=== PATIENT | female | born 1980 | race Caucasian/White ===

== ENCOUNTER 2017-07-26 08:02 | Day surgery (SDC) | payer OTHER ==
[2017-07-26] MEDS ORDERED: Mineral Oil PER 1 ML PO SCH (08:30)
[2017-07-26] MEDS ORDERED: Terbutaline Sulfate 1 MG/ML VIAL SC SCH (08:45)
--- NOTE | 2017-07-26 08:50 | PDOC.LDHP ---
Labor and Delivery H&P Chief complaint: other (Scheduled procedure: ECV for persistent breech presentation.) HPI: Patient is doing well. No concerns. Good movement this morning. Patient feels like is still head up Current gestational age (weeks): 37 Due date: 08/13/17 Dating criteria: first trimester ultrasound (dated by US for S<D at 9 weeks gestation) Grav: 2 Para: 1 ( 7lbs 11oz ) OB History Details: G1 2006 - 7.11 Current complications: other (hypothyroidism on Whitt thyroid, Persistent Breech presentation, AMA (neg maternity 21)) Past Medical History: Hypothyroidism Current medications: pre- vitamins, other (armour thyroid) Previous surgical history: cholecystectomy Allergies/Adverse Reactions: Allergies Allergy/AdvReac Type Severity Reaction Status Date / Time No Allergy Information Allergy Verified 07/26/17 08:42 Available Social history: alcohol use (rarely pre ) - Physical Exam Vital signs reviewed and normal: yes General: NAD Heart: RRR Lungs: CTAB Abdomen: gravid (Breech by leopolds and confirmed by bedside US) Extremeties: trace edema FHT: category 1 - OB Labs Blood type: A RH: positive Antibody Screen: negative HIV: negative RPR: negative HEPSAg: negative 1 hour GCT: negative - Assessment term patient for ECV - Plan -: ECV
[2017-07-26 08:56] VITALS: BMI 35.9
--- NOTE | 2017-07-26 10:31 | OP ---
DATE OF PROCEDURE: 07/26/2017 PREOPERATIVE DIAGNOSES: Persistent jacquelyn breech presentation at 37-38 weeks' gestation, blood type A positive, posterior placenta, adequate amniotic fluid volume. POSTOPERATIVE DIAGNOSES: Persistent jacquelyn breech presentation at 37-38 weeks' gestation, blood type A positive, posterior placenta, adequate amniotic fluid volume plus conversion to cephalic presentati on. PROCEDURE: External cephalic version. SURGEON: Zev Tobin M.D. ANESTHESIA: None. ESTIMATED BLOOD LOSS: None. COMPLICATIONS: None. OPERATIVE FINDINGS: 1. Persistent jacquelyn breech presentation with back on the maternal right with posterior fundal placenta, adequate amniotic fluid index. 2. A forward roll conversion to cephalic presentation with approximately 2-3 minutes of effort with external cephalic version. 3. Category 1 heart rate tracing prior to and post-procedure. DISPOSITION: Home. Follow up with Karolyn Preciado, certified nurse microsoft access developer, at [facility] in 1 week. DESCRIPTION OF OPERATIVE PROCEDURE: The patient was admitted and was noted to have Rh positive blood . She received an IV and gave consents for delivery and for external cephalic version, received terb utaline 0.25 subcutaneous approximately 50 minutes prior to the initiation of the procedure. Ultraso und was used to confirm presentation and location of placenta, PAOLO, lie. Minimal oil was appli ed to the abdomen and the central station operator using his hands, elevated the breech out to the pelvis, in a clockwise manner used his hands to roll the head into the maternal left lower quadrant and con versely at the same time pushed the breech through the right lower quadrant into the right uppe r quadrant. This was accomplished over approximately 3 minutes. Ultrasound guidance revealed no luis alberto dence of deceleration. Cephalic presentation was confirmed after external cephalic version. The pat ient will be monitored for approximately 1 hour. Sent home with precautions for decreased move ment and follow up in 1 week at [facility].
== END 2017-07-26 10:49 | disposition home or self-care (01) ==
LOC: L&D/OP 08:02
PROVIDERS: ATTEND Obstetrics & Gynecology
PROC: 10S0XZZ Reposition Products of Conception, External Approach (ICD-10-PCS; principal; 2017-07-26)
DX: O32.1XX0 Maternal care for breech presentation, not applicable or unspecified (principal); O99.283 Endocrine, nutritional and metabolic diseases complicating pregnancy, third trimester; E03.9 Hypothyroidism, unspecified; Z3A.37 37 weeks gestation of pregnancy; Z79.899 Other long term (current) drug therapy
CPT/HCPCS: 59412; 76815; 96372; 99283; J3105

== ENCOUNTER 2017-08-10 05:30 | Inpatient (IN) | payer OTHER ==
[2017-08-10] MEDS ORDERED: HYDROcodone/Acetaminophen 5/325 mg Tablet PO PRN ×3 (07:07→18:40)
[2017-08-10] MEDS ORDERED: Promethazine HCl 25 MG/ML VIAL IM PRN ×2 (07:07→14:08)
[2017-08-10] MEDS ORDERED: Ondansetron HCl/PF 4 MG/2 ML Vial IVP PRN ×2 (07:07→14:08)
[2017-08-10] MEDS ORDERED: Methylergonovine 0.2 MG/ML VIAL IM PRN ×2 (07:07→18:40)
[2017-08-10] MEDS ORDERED: LR / Pitocin 40 units/1000 ml 1,000 ML IV PRN (07:07)
[2017-08-10] MEDS ORDERED: Misoprostol 200 MCG TAB PR PRN (07:07)
[2017-08-10] MEDS ORDERED: LR 500 ML/Oxytocin 10 units 500 ML IV SCH (07:07)
[2017-08-10] MEDS ORDERED: Ibuprofen 800 MG TAB PO PRN (07:07)
[2017-08-10] MEDS ORDERED: Lidocaine 1% (PF) 30 ML VIAL SC PRN (07:07)
[2017-08-10] MEDS: Lactated Ringer's 1,000 ML IV SCH ×2 (07:40→12:02)
[2017-08-10 08:09] VITALS: BMI 35.3
[2017-08-10 08:11] LABS: Hemoglobin 11.5 g/dL (12.0-16.0); Mean Corpuscular HGB CONC 35.7 g/dL (32.0-36.0); Mean Corpuscular Hemoglobin 34.7 pg (27.0-31.0); Mean Platelet Volume 8.1 fL (7.4-10.4); Platelet Count 156 thou/uL (130-400); RBC Distribution Width 13.2 % (11.5-14.5); Red Blood Cell (RBC) Count 3.32 mill/uL (4.20-5.40); White Blood Cell (WBC) Count 8.2 thou/uL (4.8-10.8)
[2017-08-10 08:54] LABS: Syphilis Antibody Nonreactive (Nonreactive); Syphilis Antibody Index 0.03 S/CO (<1.00 Non-Reactive)
[2017-08-10] MEDS ORDERED: Lidocaine 2% MPF 10 ML AMP (For Epidural Use) ONE (09:00)
[2017-08-10] MEDS ORDERED: DISCONTINUE ALL PREVIOUS NARCOTICS FS SCH (09:45)
[2017-08-10] MEDS ORDERED: Bupivacaine 0.5% 20 ML, fentaNYL Citrate/PF 400 MCG in Sodium Chloride 0.9% 72 ML EPIDURAL SCH (09:45)
[2017-08-10] MEDS ORDERED: Eucerin (Mineral Oil/Petrolatum,White) 30 gm Jar TOP PRN (14:08)
[2017-08-10] MEDS ORDERED: ePHEDrine/0.9% NaCl/PF SYRINGE 50 mg/10 ml SLOW IVP PRN (14:08)
[2017-08-10] MEDS ORDERED: Lactated Ringer's 500 ML IV PRN (14:08)
[2017-08-10] MEDS ORDERED: diphenhydrAMINE 50 MG/ML VIAL IVP PRN (14:08)
[2017-08-10] MEDS ORDERED: Naloxone HCl 0.4 mg/ml Vial IVP PRN ×2 (14:08)
[2017-08-10] MEDS ORDERED: Acetaminophen 325 MG TAB PO PRN (14:08)
[2017-08-10] MEDS ORDERED: Fentanyl 4mcg/Marcaine 0.1% Cassette 100 ML EPIDURAL SCH (14:15)
[2017-08-10] MEDS ORDERED: Communication Order-Pharmacy FS SCH (14:15)
[2017-08-10 15:12] LABS: HBSAg Index 0.19 S/CO (0-0.99); Hep B Surf Ag Non-Reactive S/CO (NonReactive)
--- NOTE | 2017-08-10 18:23 | PDOC.OPDEL ---
OB Operative/Delivery Note Delivery Dr/Surgeon: Sarath Preciado CNM Pre-Delivery Diagnosis: other (IOL - elective. Light mec.) Procedure/Post Delivery Dx: spontaneous vaginal delivery Weeks gestation: 39 Anesthesia: epidural - Findings A Sex: male Weight: 7 lb 13 oz - 1 min: 8 - 5 min: 9 - Additional Findings/Plan Placenta delivered: spontaneous Repaired Obstetrical Laceration: none Estimated blood loss: 200mL Post delivery plan: routine recovery
[2017-08-10] MEDS ORDERED: Zolpidem Tartrate 5 MG TAB PO PRN (18:40)
[2017-08-10] MEDS ORDERED: Lanolin Ointment 7 GM TUBE TOP PRN (18:40)
[2017-08-10] MEDS ORDERED: Benzocaine/Menthol 20-0.5% 60 ML CAN TOP PRN (18:40)
[2017-08-10] MEDS ORDERED: LR / Pitocin 40 units/1000 ml 1,000 ML IV SCH (18:40)
[2017-08-10] MEDS ORDERED: Milk Of Magnesia 30 ML UDCUP PO PRN (18:40)
[2017-08-10] MEDS ORDERED: Bisacodyl 10 MG SUPP PR PRN (18:40)
[2017-08-10] MEDS ORDERED: Misoprostol 200 MCG TAB VAG SCH (19:00)
[2017-08-10] MEDS: Docusate Calcium (SURFAK) 240 MG CAP PO SCH (20:51)
[2017-08-10] MEDS: HYDROcodone/Acetaminophen 5/325 mg Tablet PO PRN (21:24)
[2017-08-10] MEDS: Ibuprofen 800 MG TAB PO SCH (22:16)
[2017-08-11 06:17] LABS: Hemoglobin 10.9 g/dL (12.0-16.0); Mean Corpuscular HGB CONC 34.3 g/dL (32.0-36.0); Mean Corpuscular Hemoglobin 33.7 pg (27.0-31.0); Mean Corpuscular Volume 98.3 fl (81.0-99.0); Mean Platelet Volume 8.1 fL (7.4-10.4); Platelet Count 144 thou/uL (130-400); RBC Distribution Width 13.2 % (11.5-14.5); Red Blood Cell (RBC) Count 3.24 mill/uL (4.20-5.40); White Blood Cell (WBC) Count 11.8 thou/uL (4.8-10.8)
[2017-08-11] MEDS: Ibuprofen 800 MG TAB PO SCH ×3 (06:26→21:32)
[2017-08-11] MEDS: Prenatal Vitamin 1 TAB PO SCH (08:26)
[2017-08-11] MEDS: Docusate Calcium (SURFAK) 240 MG CAP PO SCH ×2 (08:26→21:32)
[2017-08-11] MEDS: Ferrous Sulfate 325 MG TAB PO SCH ×2 (08:26→18:51)
[2017-08-11] MEDS ORDERED: Measles/Mumps/Rubella 10 MCG/0.5 ML VIAL SC ONE (09:00)
[2017-08-11] MEDS ORDERED: Varicella virus, LIVE 0.5 ML VIAL SC ONE (09:00)
[2017-08-11] MEDS ORDERED: Adacel (T-DAP) 0.5 ML VIAL IM ONE (09:00)
[2017-08-11] MEDS: HYDROcodone/Acetaminophen 5/325 mg Tablet PO PRN (21:33)
[2017-08-12] MEDS: Ibuprofen 800 MG TAB PO SCH (05:39)
--- NOTE | 2017-08-12 08:19 | PDOC.PP ---
Post Progress Note Post Day #: 1 Subjective: pt is doing well. infant is a lot PO intake tolerated: yes Flatus: yes Ambulation: yes Vital Signs (12 hours) Temp Pulse Resp BP 08/11/17 21:30 98.7 F 71 18 121/62 Weight Weight 219 lb - Physical Examination General: NAD Cardiovascular: no m/r/g Respiratory: non-labored breathing Abdominal: lochia (minimal) Extremities: negative homans (B) Skin: no rash Psychiatric: A&Ox3, normal affect Result Diagrams: 08/11/17 05:44 Additional Labs: Post Labs Blood Type A POSITIVE 08/10/17 07:53 Hep Bs Antigen Non-Reactive S/CO (NonReactive) 08/10/17 07:53 (1) (spontaneous vaginal delivery) Code(s): O80 - ENCOUNTER FOR FULL-TERM UNCOMPLICATED DELIVERY Status: Acute (2) AMA (advanced maternal age) multigravida 35+ Code(s): O09.529 - SUPERVISION OF ELDERLY MULTIGRAVIDA, UNSPECIFIED TRIMESTER Status: Acute - Assessment/Plan A: G2 now P2 s/p with NML PPD#1 exam P: plan for discharge tomorrow
--- NOTE | 2017-08-12 08:21 | PDOC.PP ---
Post Progress Note Post Day #: 2 Subjective: pt was up all night feeding PO intake tolerated: yes Flatus: yes Ambulation: yes Vital Signs (12 hours) Temp Pulse Resp BP 08/11/17 21:30 98.7 F 71 18 121/62 Weight Weight 219 lb - Physical Examination Cardiovascular: no m/r/g, RRR Respiratory: non-labored breathing Abdominal: lochia (minimal) Skin: no rash Psychiatric: normal affect Result Diagrams: 08/11/17 05:44 Additional Labs: Post Labs Blood Type A POSITIVE 08/10/17 07:53 Hep Bs Antigen Non-Reactive S/CO (NonReactive) 08/10/17 07:53 (1) (spontaneous vaginal delivery) Code(s): O80 - ENCOUNTER FOR FULL-TERM UNCOMPLICATED DELIVERY Status: Acute (2) AMA (advanced maternal age) multigravida 35+ Code(s): O09.529 - SUPERVISION OF ELDERLY MULTIGRAVIDA, UNSPECIFIED TRIMESTER Status: Acute - Assessment/Plan a; G2 now P2 sp with NL PPD#2 exam P: discharge home today when is discharged. follow up with kimberlee Preciado at 6 weeks or sooner if help is desired
[2017-08-12 08:27] VITALS: BP 106/66; TEMP 98.4
[2017-08-12] MEDS: Docusate Calcium (SURFAK) 240 MG CAP PO SCH (08:36)
[2017-08-12] MEDS: Ferrous Sulfate 325 MG TAB PO SCH (08:36)
[2017-08-12] MEDS: Prenatal Vitamin 1 TAB PO SCH (08:36)
[2017-08-12] MEDS: Lactated Ringer's 1,000 ML IV SCH (10:48)
== END 2017-08-12 13:30 | disposition home or self-care (01) | DRG 775 ==
LOC: L&D 06:53 → 3SW 21:03
PROVIDERS: ADMIT Obstetrics & Gynecology; ATTEND Obstetrics & Gynecology
PROC: 10E0XZZ Delivery of Products of Conception, External Approach (ICD-10-PCS; principal; 2017-08-10)
PROC: 3E0234Z Introduction of Serum, Toxoid and Vaccine into Muscle, Percutaneous Approach (ICD-10-PCS; 2017-08-12)
DX: O77.0 Labor and delivery complicated by meconium in amniotic fluid (principal); Z3A.39 39 weeks gestation of pregnancy; Z37.0 Single live birth; Z23 Encounter for immunization
CPT/HCPCS: 36415; 51702; 76815; 85027; 86780; 86850; 86900; 86901; 87340; 90715; J2001; J3010; J3490; J7050; J7120

== ENCOUNTER 2018-07-29 17:11 | Emergency (ER) | payer OTHER, SELFPAY ==
[2018-07-29 17:58] LABS: #Basophils 0.1 thou/uL (0.0-0.2); #Eosinphils 0.6 thou/uL (0.0-0.7); #Lymphocytes 2.5 thou/uL (1.20-3.40); #Monocytes 0.4 thou/uL (0.11-0.59); #Neutrophils 4.1 thou/uL (1.40-6.50); %Basophils 1.2 % (0.0-1.0); %Eosinophils 7.9 % (0.0-10.0); %Lymphocytes 32.6 % (21.0-51.0); %Monocytes 4.7 % (0.0-10.0); %Neutrophils 53.7 % (42.0-75.0); Hemoglobin 13.2 g/dL (12.0-16.0); Mean Corpuscular Hemoglobin 32.4 pg (27.0-31.0); Mean Corpuscular Volume 95.4 fL (78.0-98.0); Mean Platelet Volume 7.6 fL (7.4-10.4); Platelet Count 190 thou/uL (130-400); RBC Distribution Width 12.2 % (11.5-14.5); Red Blood Cell (RBC) Count 4.07 mill/uL (4.20-5.40); White Blood Cell (WBC) Count 7.7 thou/uL (4.8-10.8)
[2018-07-29 18:18] LABS: ALT (SGPT) 9 U/L (8-55); AST (SGOT) 14 U/L (5-34); Albumin 4.4 g/dL (3.5-5.0); Alkaline Phosphatase 88 U/L (40-150); Anion Gap 11 mmol/L (10-20); BUN (Urea Nitrogen) 16 mg/dL (7.0-18.7); Bilirubin, Total 0.6 mg/dL (0.2-1.2); Calc. Creatinine Clearance 0 mL/min (70-130); Calcium 9.4 mg/dL (7.8-10.44); Carbon Dioxide 26 mmol/L (22-29); Chloride 107 mmol/L (98-107); Estimated GFR-MDRD 85; Globulin 3.2 g/dL (2.4-3.5); Glucose 88 mg/dL (70-105); Lipase 22 U/L (8-78); Potassium 3.7 mmol/L (3.5-5.1); Protein, Total 7.6 g/dL (6.0-8.3); Sodium 140 mmol/L (136-145)
[2018-07-29] MEDS ORDERED: Lidocaine Viscous Sol 2% 15 ml UD Cup ONE (18:19)
[2018-07-29] MEDS ORDERED: Mag-Al 1200 mg/1200 mg/30 ML UDCUP ONE (18:19)
[2018-07-29 19:10] LABS: Bilirubin Negative (Negative); Blood, Urine Negative (Negative); Clarity CLEAR (Clear); Glucose, Urine (Dipstick) Negative (Negative); Leukocyte Small (Negative); Nitrite Negative (Negative); Protein, Urine (Dipstick) Negative (Neg-Trace); Specific Gravity, Urine 1.028 (1.002-1.036); pH, Urine 5.5 (5.0-9.0)
[2018-07-29 19:11] LABS: Bacteria/HPF Rare-Few HPF (None Seen); Hyaline Casts/LPF 0-3 HYALINE CAST LPF (0-3 Hyaline); Pathc Cast-AUWi Flag 0.27 (0-2.49); RBC/HPF 0-3 HPF (0-3)
[2018-07-29 19:31] LABS: Pregnancy Test - Urine (BHCG) Negative (Negative); Pregu Control Background? CLEAR/WHITE (CLR/WHITE); Pregu Control Bar Appear? YES (CONTROL BAR); Specific Gravity 1.028 (1.002-1.036)
== END 2018-07-29 19:46 | disposition home or self-care (01) ==
LOC: ERS 17:11
DX: R10.11 Right upper quadrant pain (principal); R10.13 Epigastric pain
CPT/HCPCS: 80053; 81003; 81015; 81025; 83690; 85025; 93005; 94760

== ENCOUNTER 2022-12-02 22:37 | Inpatient (IN) | payer BC, SELFPAY ==
[~2022-12-02 22:37] MED LIST: Iopamidol 370 76% 100 ML VIAL ONE; Iopamidol-370 76% 500 ML MDV (1 ML CHARGE) ONE
[2022-12-02 23:09] LABS: #Monocytes 0.1 thou/uL (0.11-0.59); #Neutrophils 3.6 thou/uL (1.40-6.50); %Basophils 0.5 % (0.0-1.0); %Lymphocytes 43.8 % (21.0-51.0); %Monocytes 2.1 % (0.0-10.0); %Neutrophils 53.4 % (42.0-75.0); Hematocrit 35.9 % (36.0-47.0); Hemoglobin 11.9 g/dL (12.0-16.0); Mean Corpuscular HGB CONC 33.1 g/dL (32.0-36.0); Mean Corpuscular Hemoglobin 32.2 pg (27.0-31.0); Mean Platelet Volume 9.5 fL (7.4-10.4); Platelet Count 156 10x3/uL (130-400); RBC Distribution Width 12.6 % (11.5-14.5); White Blood Cell (WBC) Count 6.7 10x3/uL (4.8-10.8)
[2022-12-02 23:17] LABS: BHCG - Serum Negative (NEGATIVE); Pregs Control Background? CLEAR/WHITE (CLR/WHITE); Pregs Control Bar Appear? YES (CONTROL BAR)
[2022-12-02 23:22] LABS: INR-International Normal Ratio 1.2; PTT 26.9 sec (22.9-36.1); Prothrombin Time 15.5 sec (12.0-14.7)
[2022-12-02] MEDS ORDERED: fentaNYL PF 100 MCG/2 ML SYRINGE ONE (23:25)
[2022-12-02] MEDS ORDERED: Tenecteplase 50 MG ONE (23:30)
[2022-12-02] MEDS ORDERED: Rocuronium Bromide 10 MG/ML (10ML VIAL) ONE (23:30)
[2022-12-02 23:33] LABS: ALT (SGPT) 12 U/L (8-55); AST (SGOT) 15 U/L (5-34); Acetaminophen Less than 10 mcg/mL (10.0-30.0); Albumin 3.8 g/dL (3.5-5.0); Alcohol Less than 10.0 mg/dL (Less than 10); Alkaline Phosphatase 65 U/L (40-110); Anion Gap 6 mmol/L (10-20); BUN (Urea Nitrogen) 17 mg/dL (7.0-18.7); Bilirubin, Total 0.6 mg/dL (0.2-1.2); Calc. Creatinine Clearance 0 mL/min (70-130); Calcium 8.7 mg/dL (7.8-10.44); Carbon Dioxide 18 mmol/L (22-29); Chloride 108 mmol/L (98-107); Estimated GFR 103; Globulin 2.9 g/dL (2.4-3.5); Glucose 163 mg/dL (70-105); Potassium 3.1 mmol/L (3.5-5.1); Protein, Total 6.7 g/dL (6.0-8.3); Salicylate Less than 8.0 mg/dL (15.0-30.0); Sodium 129 mmol/L (136-145)
[2022-12-03] LABS: Actual Bicarbonate (HCO3a) 18.7 mEq/L (22-28); Analyzer IN Cardio ER; Base Excess (BEa) -2.7 mEq/L (-2.0 to +3.0); Calcium, Ionized (arterial) 1.11 mmol/L (1.12-1.30); Carboxyhemoglobin (COHb) 0.3 gm% (0.0-3.0); Hematocrit-ABG 37 % (36.0-47.0); Hemoglobin (Hb) 12.5 g/dL (12.0-16.0); O2 Tension (PaO2), arterial 256.8 mmHg (80.0-100.0); Potassium - ABG Lab 3.34 mmol/L (3.70-5.30)
[2022-12-03 00:11] LABS: Puncture Site LRA
[2022-12-03] MEDS ORDERED: Midazolam HCl 2 mg/2 ml Vial ONE (00:14)
[2022-12-03] MEDS ORDERED: Ipratropium/Albuterol 3 ML NEB NEB PRN (00:24)
[2022-12-03] MEDS ORDERED: Electrolyte Replacement Protocol 1 EACH IVPB SCH (00:24)
[2022-12-03] MEDS ORDERED: Lidocaine 1% (PF) 30 ML VIAL ONE ×2 (00:26→01:06)
[2022-12-03] MEDS ORDERED: Heparin 10,000 UNITS/ 10 ML VIAL ONE (00:26)
[2022-12-03] MEDS ORDERED: niCARdipine 25 MG in Sodium Chloride 0.9% 250 ML 250 ML IVPB PRN (00:28)
[2022-12-03] MEDS ORDERED: Labetalol HCl 100 MG/20 ML VIAL SLOW IVP PRN (00:28)
[2022-12-03] MEDS ORDERED: hydrALAZINE 20 MG/ML VIAL SLOW IVP PRN (00:28)
[2022-12-03] MEDS ORDERED: Communication Order-Pharmacy FS SCH (00:28)
[2022-12-03] MEDS ORDERED: Morphine 2 MG/ML VIAL SLOW IVP PRN (00:30)
[2022-12-03] MEDS ORDERED: Fentanyl CADD 100 ML IV SCH (00:30)
[2022-12-03] MEDS ORDERED: Lorazepam 2 MG/ML VIAL SLOW IVP PRN (00:30)
[2022-12-03] MEDS ORDERED: Fentanyl BOLUS 250 ML IVPB PRN (00:30)
[2022-12-03] MEDS ORDERED: Ventilator Sedation Protocol 1 EACH FS SCH (00:30)
[2022-12-03] MEDS ORDERED: Propofol 1,000 MG/100 ML VIAL IV PRN (00:30)
[2022-12-03] MEDS ORDERED: Propofol BOLUS 1,000 MG/100 ML VIAL IV PRN (00:30)
[2022-12-03 00:57] LABS: Amphetamine Detected (NotDetected); Barbiturates Screen Not Detected (NotDetected); Benzodiazepine Screen Detected (NotDetected); Cocaine Metabolite Screen Not Detected (NotDetected); Methadone Not Detected (NotDetected); Methamphetamine Not Detected (NotDetected); Opiate Screen Detected (NotDetected); Oxycodone Screen Not Detected (NotDetected); Phencyclidine (PCP) Not Detected (NotDetected); THC/Cannabinoid Screen Not Detected (NotDetected); Tricyclic Screen Not Detected (NotDetected)
[2022-12-03] MEDS ORDERED: Rocuronium Bromide 10 MG/ML (10ML VIAL) ONE (00:59)
[2022-12-03 03:20] VITALS: BMI 27.2
[2022-12-03] MEDS: Lactated Ringer's 1,000 ML IV SCH ×2 (03:49→18:18)
[2022-12-03] MEDS: Potassium Chloride 20 MEQ in Premix Bag 1 BAG IVPB SCH ×2 (03:52→06:21)
[2022-12-03] MEDS: Famotidine/PF 20 mg/2ml Vial SLOW IVP SCH ×2 (09:32→20:15)
[2022-12-03] MEDS ORDERED: Artificial Tear Sol 15 ML BOT EA EYE PRN (15:40)
[2022-12-03] MEDS ORDERED: Senokot S 8.6-50 MG TAB PO PRN (15:40)
[2022-12-03] MEDS ORDERED: Calcium Carbonate 500 MG ChewTAB PO PRN (15:40)
[2022-12-03] MEDS ORDERED: Benzocaine/Menthol 1 LOZ LOZ PO PRN (15:40)
[2022-12-03] MEDS ORDERED: diphenhydrAMINE 25 MG CAP PO PRN (15:40)
[2022-12-03] MEDS ORDERED: Moisturizing Cream (Eucerin) 113 GM JAR TOP PRN (15:40)
[2022-12-03] MEDS ORDERED: Doxepin HCl 10 MG CAP PO PRN (15:40)
[2022-12-03] MEDS ORDERED: ALPRAZolam 0.5 MG TAB PO PRN (15:40)
[2022-12-03] MEDS: Atorvastatin Calcium 40 MG TAB PO SCH (20:15)
[2022-12-03] MEDS: Acetaminophen 500 MG TAB PO PRN (23:37)
[2022-12-04] MEDS: Lactated Ringer's 1,000 ML IV SCH ×2 (04:10→15:48)
[2022-12-04 04:45] LABS: #Basophils 0.1 thou/uL (0.0-0.2); #Eosinphils 0.1 thou/uL (0.0-0.7); #Monocytes 0.3 thou/uL (0.11-0.59); #Neutrophils 4.6 thou/uL (1.40-6.50); %Basophils 0.7 % (0.0-1.0); %Lymphocytes 27.6 % (21.0-51.0); %Monocytes 4.4 % (0.0-10.0); %Neutrophils 65.2 % (42.0-75.0); Hematocrit 35.1 % (36.0-47.0); Hemoglobin 11.6 g/dL (12.0-16.0); Mean Corpuscular Hemoglobin 31.8 pg (27.0-31.0); Mean Corpuscular Volume 96.2 fl (78.0-98.0); Mean Platelet Volume 9.6 fL (7.4-10.4); Platelet Count 167 10x3/uL (130-400); RBC Distribution Width 12.9 % (11.5-14.5); Red Blood Cell (RBC) Count 3.65 mill/uL (4.20-5.40); White Blood Cell (WBC) Count 7.1 10x3/uL (4.8-10.8)
[2022-12-04 04:56] LABS: Hemoglobin A1c 4.5 % (4.0-6.0)
[2022-12-04 05:11] LABS: INR-International Normal Ratio 1.1; PTT 31.1 sec (22.9-36.1)
[2022-12-04 05:14] LABS: ALT (SGPT) 14 U/L (8-55); AST (SGOT) 19 U/L (5-34); Albumin 3.5 g/dL (3.5-5.0); Alkaline Phosphatase 69 U/L (40-110); Anion Gap 9 mmol/L (10-20); BUN (Urea Nitrogen) 7 mg/dL (7.0-18.7); Bilirubin, Total 1.2 mg/dL (0.2-1.2); Calc. Creatinine Clearance 141 mL/min (70-130); Calcium 8.8 mg/dL (7.8-10.44); Carbon Dioxide 25 mmol/L (22-29); Cardiac Risk 2.5 (Less than 4.5); Chloride 107 mmol/L (98-107); Cholesterol 107 mg/dl (< 200 Desired); Estimated GFR 113; Globulin 2.9 g/dL (2.4-3.5); Glucose 85 mg/dL (70-105); HDL Cholesterol 42 mg/dL (>60 Neg Risk); LDL Cholesterol, Calculated 52 mg/dL; Potassium 3.4 mmol/L (3.5-5.1); Protein, Total 6.4 g/dL (6.0-8.3); Sodium 138 mmol/L (136-145); Triglycerides 67 mg/dL (Less than 150)
[2022-12-04 05:19] LABS: D-Dimer Test 3.49 *mcg/mL (0.27-0.43)
[2022-12-04] MEDS ORDERED: Potassium Chloride 20 MEQ TAB PO SCH (08:00)
[2022-12-04] MEDS: Aspirin 81 mg Enteric Coated Tablet PO SCH (08:20)
[2022-12-04] MEDS: Famotidine/PF 20 mg/2ml Vial SLOW IVP SCH ×2 (08:20→21:15)
[2022-12-04] MEDS: Acetaminophen 500 MG TAB PO PRN ×3 (10:25→23:24)
[2022-12-04 12:01] LABS: Prothrombin Time 14.7 sec (12.0-14.7)
[2022-12-04] MEDS ORDERED: Magnevist 469MG/ML 20 ML VIAL ONE (14:03)
[2022-12-04] MEDS: Atorvastatin Calcium 40 MG TAB PO SCH (21:16)
[2022-12-05] MEDS: Lactated Ringer's 1,000 ML IV SCH ×2 (01:39→13:00)
[2022-12-05 03:57] LABS: #Basophils 0.1 thou/uL (0.0-0.2); #Eosinphils 0.2 thou/uL (0.0-0.7); #Monocytes 0.4 thou/uL (0.11-0.59); #Neutrophils 3.8 thou/uL (1.40-6.50); %Basophils 0.7 % (0.0-1.0); %Eosinophils 3.4 % (0.0-10.0); %Lymphocytes 34.8 % (21.0-51.0); %Monocytes 5.2 % (0.0-10.0); %Neutrophils 55.9 % (42.0-75.0); Hematocrit 30.8 % (36.0-47.0); Hemoglobin 10.4 g/dL (12.0-16.0); Mean Corpuscular HGB CONC 33.8 g/dL (32.0-36.0); Mean Corpuscular Hemoglobin 32.2 pg (27.0-31.0); Mean Corpuscular Volume 95.4 fl (78.0-98.0); Mean Platelet Volume 9.6 fL (7.4-10.4); Platelet Count 148 10x3/uL (130-400); RBC Distribution Width 12.8 % (11.5-14.5); Red Blood Cell (RBC) Count 3.23 mill/uL (4.20-5.40); White Blood Cell (WBC) Count 6.8 10x3/uL (4.8-10.8)
[2022-12-05 04:24] LABS: Anion Gap 9 mmol/L (10-20); BUN (Urea Nitrogen) 8 mg/dL (7.0-18.7); Calc. Creatinine Clearance 141 mL/min (70-130); Calcium 8.6 mg/dL (7.8-10.44); Carbon Dioxide 24 mmol/L (22-29); Chloride 109 mmol/L (98-107); Estimated GFR 114; Glucose 87 mg/dL (70-105); Magnesium 1.4 mg/dL (1.6-2.6); Potassium 3.9 mmol/L (3.5-5.1); Sodium 138 mmol/L (136-145)
[2022-12-05] MEDS ORDERED: Ketorolac Tromethamine 30 MG/ML VIAL IVP SCH (06:00)
[2022-12-05] MEDS ORDERED: Magnesium Sulfate In Water 4 GM in Premix Bag 1 BAG IVPB SCH (06:00)
[2022-12-05] MEDS: Aspirin 81 mg Enteric Coated Tablet PO SCH (08:52)
[2022-12-05] MEDS: Famotidine/PF 20 mg/2ml Vial SLOW IVP SCH ×2 (08:52→20:49)
[2022-12-05] MEDS: Acetaminophen 500 MG TAB PO PRN (13:01)
[2022-12-05 19:22] LABS: Cardiolipin IgG Ab 5.4 GPL-U/mL (<10 Negative); Cardiolipin IgM Ab 3.6 MPL-U/mL (<10 Negative); EliA APS New Method **** NEW METHOD ****
[2022-12-05] MEDS: Atorvastatin Calcium 40 MG TAB PO SCH (20:49)
[2022-12-06] MEDS ORDERED: Ketorolac Tromethamine 30 MG/ML VIAL IVP SCH (01:00)
[2022-12-06 08:16] VITALS: TEMP 97.8
[2022-12-06] MEDS ORDERED: Folic Acid 1 MG TAB PO SCH (09:00)
[2022-12-06] MEDS ORDERED: Thyroid 30 MG TAB PO SCH (09:00)
[2022-12-06] MEDS: Famotidine/PF 20 mg/2ml Vial SLOW IVP SCH (09:24)
[2022-12-06] MEDS: Aspirin 81 mg Enteric Coated Tablet PO SCH (09:24)
[2022-12-06 09:36] VITALS: BP 134/86
== END 2022-12-06 11:35 | disposition home or self-care (01) | DRG 62 ==
LOC: ERS 22:37 → CCL 12-03 00:48 → CCU 12-03 00:48 → 2SE 12-05 19:15
PROVIDERS: ADMIT Neurological Surgery; ATTEND Internal Medicine
PROC: 3E03317 Introduction of Other Thrombolytic into Peripheral Vein, Percutaneous Approach (ICD-10-PCS; principal; 2022-12-03)
PROC: B3131ZZ Fluoroscopy of Right Common Carotid Artery using Low Osmolar Contrast (ICD-10-PCS; 2022-12-03)
PROC: B31D1ZZ Fluoroscopy of Right Vertebral Artery using Low Osmolar Contrast (ICD-10-PCS; 2022-12-03)
PROC: 5A1935Z Respiratory Ventilation, Less than 24 Consecutive Hours (ICD-10-PCS; 2022-12-03)
PROC: 0BH17EZ Insertion of Endotracheal Airway into Trachea, Via Natural or Artificial Opening (ICD-10-PCS; 2022-12-03)
PROC: 0D9670Z Drainage of Stomach with Drainage Device, Via Natural or Artificial Opening (ICD-10-PCS; 2022-12-03)
PROC: 4A033R1 Measurement of Arterial Saturation, Peripheral, Percutaneous Approach (ICD-10-PCS; 2022-12-03)
DX: I63.22 Cerebral infarction due to unspecified occlusion or stenosis of basilar artery (principal); E87.1 Hypo-osmolality and hyponatremia; E87.20 Acidosis, unspecified; I63.111 Cerebral infarction due to embolism of right vertebral artery; I08.3 Combined rheumatic disorders of mitral, aortic and tricuspid valves; R47.1 Dysarthria and anarthria; E87.6 Hypokalemia; Z78.1 Physical restraint status; Z79.899 Other long term (current) drug therapy; Z90.49 Acquired absence of other specified parts of digestive tract; Z98.890 Other specified postprocedural states
CPT/HCPCS: 31500; 36226; 36228; 36415; 36416; 36600; 51702; 70450; 70496; 70498; 70553; 71045; 80048; 80053; 80061; 80306; 80307; 82805; 83036; 83090; 83735; 84703; 85025; 85300; 85303; 85305; 85307; 85379; 85598; 85610; 85730; 86147; 93005; 93306; 94002; 96374; 96375; 99292; A9579; C1769; C1887; C1894; J1644; J1885; J2001; J2250; J2704; J3101; J3475; J3480; J7120; Q9967; S0028